=== PATIENT | female | born 1945 | race Caucasian/White ===

== ENCOUNTER 2024-12-22 13:04 | Inpatient (IN) | payer OTHER, SELFPAY ==
[2024-12-22] VITALS (10 sets, daily range): BP systolic 102–172; BP diastolic 47–88; BMI 34.5; BMI 33.6
--- NOTE | 2024-12-22 06:58 | ED.GENMED ---
History of Present Illness
General
Chief Complaint: Weakness
Source: patient
Exam Limitations: none
Time Seen by Provider: 12/22/24 06:52
History of Present Illness
History of Present Illness:
See MDM
Past History
Past History
ED Past Medical History: GERD, Hypercholesterolemia and Psychiatric
ED Past Surgical History: None
Social History
Tobacco: Non-smoker
Alcohol: None
Phy Exam
Physical Exam
Physical Exam:
See MDM
Course
Orders/Labs/Results
Orders:
Orders
12/22/24 06:55
Electrocardiogram (*1) Urgent
Reason for Study: Vertigo / Dizzy
CT Head W/o Iv Contrast Urgent
Comment:
Reason For Exam: Fall, head injury
EKG- Treatment ONCE
12/22/24 06:59
CR Chest - 2 Views Urgent
Comment:
Reason For Exam: Cough and fevers
12/22/24 07:00
COVID-19 Antigen Urgent
Source: Nasal Swab
Influenza A+B Rapid Molecular Urgent
GABO Source: Nasal Swab
Specimen Description:
12/22/24 07:09
Basic Metabolic Panel Urgent
Complete Blood Count/With Diff Urgent
12/22/24 07:33
Urinalysis Reflex To Culture Urgent
Date Specimen was Collected: 12/22/24
Time Specimen was Collected: 07:20
Urine Microscopic Reflex Cult Urgent
Urine Culture Urgent
GABO Source: U
Specimen Description:
Date Specimen was Collected: 12/22/24
Time Specimen was Collected: 07:20
12/22/24 09:00
CefTRIAXone [Rocephin] 1,000 mg IV NOW STA
Abnormal Lab Results
12/22/24 12/22/24
07:09 07:33
WBC 15.0 H 10^3/uL
(4.8-10.8)
MCH 31.2 H pg
(27.0-31.0)
Abs Immat Gran (auto) 0.1 H 10^3/uL
(0-0.05)
Absolute Neuts (auto) 11.8 H 10^3/uL
(1.4-6.5)
Absolute Monos (auto) 1.3 H 10^3/uL
(0.1-0.6)
Neutrophils % 78.9 H %
(42.2-75.2)
Lymphocytes % 10.8 L %
(20.5-51.1)
BUN 21 H mg/dl
(7-17)
Glucose 109 H mg/dl
(70-99)
Ur Occult Blood Reflex 1+ A
(Negative)
Urine Nitrite (Reflex) Positive A
(Negative)
Leukocyte Esterase Rfl 3+ A
(Negative)
Urine RBC 3-6 A /HPF
(0-2)
Urine WBC (Reflex) 30-40 A /HPF
(0-5)
Urine Bacteria (Reflex) Many A
(Negative)
Urine Albumin (Reflex) 2+ A
(Neg - Trace)
12/22/24 07:09
12/22/24 07:09
Vital Signs
Initial and Last Documented VS:
Initial Vital Signs
Temp Pulse Resp BP Pulse Ox
98.8 F 87 18 102/55 96
12/22/24 06:54 12/22/24 06:54 12/22/24 06:54 12/22/24 06:54 12/22/24 06:54
Last Documented Vital Signs
Temp Pulse Resp BP Pulse Ox
98.8 F 87 18 102/55 96
12/22/24 06:54 12/22/24 06:54 12/22/24 06:54 12/22/24 06:54 12/22/24 06:54
MDM/Problems Addressed
Differential Diagnosis Includes:
HPI and MDM Narrative:
79-year-old female presenting for evaluation of generalized weakness. This apparently has been ongoing for weeks. This is associated with intermittent fevers and cough. Patient does acknowledge that the cough is somewhat improved. However, due
to her ongoing weakness, she has had a few falls today. Patient states her legs give out. She did hit her head earlier in the morning. She is not on blood thinners. Given the generalized weakness, will obtain basic blood work and urinalysis.
Will obtain screening EKG. Given the cough and fevers, will obtain viral testing and chest x-ray. Given age and head trauma, will obtain CT head
Physical exam
General: Well appearing and non-toxic
HEENT: protecting airway. Mildly dry mucous membranes
Neck: supple
CV: No evidence of cyanosis. Regular rate and rhythm
Resp: No accessory muscle use. Lungs clear
Abd: Non-distended
Extremities: No deformities
Neuro: alert
Psych: Normal affect
Skin: Intact
Problems Addressed including Acute and Chronic Conditions affecting care:
1. Generalized weakness
Acuity: acute
Prognosis: stable
Details: Will obtain basic blood work
2. Cough and fever
Acuity: acute
Prognosis: stable
Details: Afebrile here. Will obtain chest x-ray and viral testing
3. Head injury
Acuity: acute
Prognosis: stable
Details: Given age and trauma, will obtain CT head
Updates
Patient found to have UTI. CT head negative and chest x-ray clear. Given the several weeks of weakness with intermittent fevers, will treat with Rocephin and admit
Differential Diagnosis (but not limited to): Viral syndrome, pneumonia, dehydration, UTI
Testing considered: Troponin but she denies any active chest pain or shortness of breath
Drug therapy (if applicable): OTC meds, please see d/c instruction regarding Rx drugs
Amount and/or Complexity of Data Reviewed
Clinical info obtained from: Patient
External data reviewed: N/A
Labs I independently reviewed (but not limited to): White blood cell count 15
Radiology: The CT scan was personally and independently reviewed. In addition, official CT report reviewed.
Pulse Ox: not hypoxic
EKG independently reviewed: Sinus rhythm, normal axis, no STEMI
Web Production Designer: Sinus rhythm
Critical Care: N/A
Risk of Complication:
Social Determinants of health: Good social support
Discussed with other providers: Hospitalist
Escalation of Care includes Admit/Obs: Given the UTI with leukocytosis and generalized weakness, will admit
Occasional wrong word or 'sound a like' substitutions may have occurred due to the inherent limitations of voice recognition software. Read the chart carefully and recognize, using context, where substitutions have occurred.
*Critical Care Note
Total Time (30-74mins, 75-104mins- exclusive of procedures): Not Applicable
ED Attending Note
-
Portions of this chart may have been created with voice recognition software.� Occasional wrong word or��sound alike� substitutions may have occurred due to the inherent limitations of voice recognition software.
Discharge Plan
Departure
Patient Disposition: Admit
Date of Disposition: 12/22/24
Time of Disposition: 09:02
Admit to: Med/Surg
Presentation/result/management discussed w/ accepting MD/DO: Hospitalist
Discharge Problem:
Acute UTI, Weakness
Prescriptions:
No Action
atorvastatin 40 mg Tablet
40 mg PO DAILY
Patient Comments:
09/23/2023, patient states that they take this medication either in the morning or in the evening whenever they remember to throughout the day.
cyanocobalamin (vitamin B-12) 1,000 mcg Tablet
1,000 mcg PO DAILY
omeprazole 40 mg Capsule,Delayed Release(Dr/Ec)
40 mg PO DAILY
acetaminophen [Tylenol Extra Strength] 500 mg Tablet
1,000 mg PO BIDPRN PRN (Reason: mild pain)
ascorbic acid (vitamin C) [Vitamin C] 500 mg Tablet
500 mg PO DAILY
meclizine 25 mg Tablet
25 mg PO DAILY PRN (Reason: dizziness)
oxybutynin chloride 5 mg Tablet Extended Release 24hr
5 mg PO DAILY
escitalopram oxalate 20 mg Tablet
20 mg PO DAILY
pregabalin 150 mg Capsule
150 mg PO BID
Patient Comments:
09/23/2023, patient filled this medication on 08/28/2023 for 60 capsules according to PDMP.
cholecalciferol (vitamin D3) 25 mcg (1,000 unit) Tablet
25 mcg PO DAILY
B12
1 cap PO DAILY
atorvastatin [Lipitor] 40 mg Tablet
40 mg PO HS
escitalopram oxalate [Lexapro] 20 mg Tablet
20 mg PO DAILY
pregabalin [Lyrica] 150 mg Capsule
150 mg PO BID
Probiotic
1 cap PO DAILY
Vitamin C
1 tab PO DAILY
Vitamin D3
1 tab PO DAILY
meclizine
25 mg PO TID PRN (Reason: dizziness)
melatonin
10 mg PO HS
omeprazole
40 mg PO DAILY
oxybutynin
5 mg PO DAILY
Rx Instructions:
hold SBP<110
Referrals:
UNKNOWN - PT DOES,NOT KNOW [Family Provider] -
Interventions
Interventions:
*Risk Screen - Suicide Last Done: 12/22/24 06:54
*General Assessment Last Done: 12/22/24 06:54
*Neglect/Abuse Screening Last Done: 12/22/24 06:54
*ED COVID-19 Vaccine History Last Done: 12/22/24 06:54
Discharge Date and Time
Print Language: SLOVAK
[2024-12-22 07:19] LABS: % Basophils 0.5 % (0-2); % Eosinophils 0.3 % (0-6); % Immature Granulocytes 0.5 % (0-0.5); % Lymphocytes 10.8 % (20.5-51.1); % Neutrophils 78.9 % (42.2-75.2); Absolute Basophils 0.1 10^3/uL (0-0.2); Absolute Eosinophils 0.1 10^3/uL (0-0.7); Absolute Immature Granulocytes 0.1 10^3/uL (0-0.05); Absolute Lymphocytes 1.6 10^3/uL (1.2-3.4); Absolute Monocytes 1.3 10^3/uL (0.1-0.6); Absolute Neutrophils 11.8 10^3/uL (1.4-6.5); Hematocrit 41.4 % (37.0-47.0); Hemoglobin 13.8 g/dL (12.0-16.0); Mean Corp Hgb Conc. 33.3 g/dL (33.0-37.0); Mean Corpuscular Hgb 31.2 pg (27.0-31.0); Mean Corpuscular Volume 93.7 fL (81.0-99.0); Mean Platelet Volume 10.4 fL (7.4-10.4); Nucleated Red Blood Cells % 0 %; Platelet Count 203 10^3/uL (130-400); Red Blood Cell Count 4.42 10^6/uL (4.20-5.40); Red Cell Dist. Width 13.9 % (11.5-14.5)
[2024-12-22 07:42] LABS: Blood Urea Nitrogen 21 mg/dl (7-17); Calcium 9.1 mg/dl (8.4-10.2); Carbon Dioxide 26 mmol/L (22-30); Chloride 105 mmol/L (98-107); Estimated Creatinine Clearance 43 ml/min; Glucose 109 mg/dl (70-99); Sodium 138 mmol/L (135-145); eGFR 57.66
[2024-12-22 07:45] LABS: COVID-19 Antigen Negative (Negative)
[2024-12-22 07:49] LABS: Urine Albumin 2+ (Neg - Trace); Urine Bilirubin Negative (Negative); Urine Character Clear (Clear); Urine Color Yellow; Urine Glucose Negative (Negative); Urine Ketone Negative (Negative); Urine Leukocyte 3+ (Negative); Urine Nitrite Positive (Negative); Urine Occult Blood 1+ (Negative); Urine Specific Gravity 1.015 (<1.030); Urine Urobilinogen Negative (Neg - 1+)
[2024-12-22 08:26] LABS: Urine Mucus Few
[2024-12-22 08:27] LABS: Urine Bacteria Many (Negative); Urine White Cell 30-40 /HPF (0-5)
[2024-12-22] MEDS: ROCEPHIN 1000 MG IV (09:29)
--- NOTE | 2024-12-22 11:33 | HPS.HSE ---
Family Physician
-
Family Physician: NOT KNOW UNKNOWN - PT DOES
Chief Complaint
-
Shortness of breath and recent fever
History of Present Illness
79 y/o female with past medical history of COVID-19 infection with viral syndrome and generalized fatigue, dyslipidemia, anxiety and depression, gastroesophageal reflux disease, fibromyalgia (on Lyrica prior to presentation) and urinary tract
infections with overactive bladder who presented with generalized weakness and shortness of breath for about 2 to 3 weeks. Patient said she had a temperature of 102 degrees F 2 weeks ago, no recurrence of fever since then. She does say she is having
progressive shortness of breath, even on little exertion, she reported that her legs are always swollen. She has fallen recently, but stated that has never lost consciousness. She denied any chest pain or abdominal pain. She reported chronic urinary
frequency/urinating a lot due to her chronic bladder issues, but denied any dysuria, suprapubic pain, or flank or back pain. She denied any new skin rash or any new joint issues.
Medical History
Past Medical History
Past Medical History: Reports Other (As per HPI above)
Past Surgical History: Reports Orthopedic (Right TKR, L4-L5 repair left ankle repair)
Social History
Tobacco: Non-smoker
Alcohol: None
Drug: None
Family History
Family History: Not pertinent
Allergies / Home Medications
Allergies reflects when Allergies were last updated in [facility].
Home Medications with original date entered in [facility]
Allergy/Medication List:
Allergies
Allergy/AdvReac Type Severity Reaction Status Date / Time
atorvastatin [From Lipitor] Allergy Unknown Verified 09/23/23 10:26
naproxen [From Naprosyn] Allergy Rash Verified 09/23/23 10:26
oxycodone Allergy Nausea / Verified 09/23/23 10:26
Vomiting
shellfish derived Allergy Hives Verified 09/23/23 10:26
Home Medications
acetaminophen 500 mg tablet (Tylenol Extra Strength) 1,000 mg PO BIDPRN PRN mild pain 09/23/23
atorvastatin 40 mg tablet 40 mg PO HS High Cholesterol 09/23/23
cholecalciferol (vitamin D3) 25 mcg (1,000 unit) tablet 25 mcg PO DAILY Supplement 09/23/23
cyanocobalamin (vitamin B-12) 1,000 mcg tablet 1,000 mcg PO DAILY Supplement 09/23/23
escitalopram oxalate 20 mg tablet 20 mg PO DAILY Depression 09/23/23
meclizine 25 mg tablet 25 mg PO DAILYPRN PRN dizziness 09/23/23
melatonin 10 mg tablet 10 mg PO HS Sleep ##0 09/23/23
omeprazole 40 mg capsule,delayed release 40 mg PO DAILY Gastrointestinal Issue 09/23/23
oxybutynin chloride 5 mg tablet,extended release 24 hr 5 mg PO DAILY Urinary Issue 09/23/23
pregabalin 150 mg capsule 150 mg PO BID Pain 09/23/23
buspirone 5 mg tablet 5 mg PO BID Mental Health/Anxiety 12/22/24
Review of Systems
-
A 12 point ROS was completed and negative except as noted: Yes
Physical Exam
Vital Signs
Vital Signs
Temp Pulse Resp BP Pulse Ox
98.8 F 87 18 102/55 96
12/22/24 06:54 12/22/24 06:54 12/22/24 06:54 12/22/24 06:54 12/22/24 06:54
Physical Exam
General: No Apparent Distress
HEENT: NormoCephalic and Moist mucous membranes
Respiratory: Clear
Cardiac: S1/S2 and Regular Rhythm
GI: Soft, Non Tender and Normal Bowel Sounds
Genito-urinary: No costovertebral tender (on either the left or the right side) and Other (No suprapubic tenderness)
Musculoskeletal: No Cyanosis, Edema, Left Lower Extremity and Edema, Right Lower Extremity
Skin: Warm and Dry
Neuro: Awake, Alert, AO x 3 and Nonfocal/grossly intact
Psych: Calm and Intact Judgment/Insight
Laboratory Results
-
12/22/24 07:09
12/22/24 07:09
Laboratory Results
Total Bilirubin Cancelled 12/22/24 07:09
AST Cancelled 12/22/24 07:09
ALT Cancelled 12/22/24 07:09
Alkaline Phosphatase Cancelled 12/22/24 07:09
Impression/Plan
-
Assessment/Plan
Presentation with generalized weakness for weeks
Presentation with progressive shortness of breath for weeks, even with minimal exertion
Recent Unexplained Fever 102 F - 2 weeks prior to presentation
Falls within 24 hours prior to presentation -- with legs giving out -- associated with head trauma (not on blood thinners)
Concern for UTI
Leukocytosis
-Rocephin given in the ER for UTI but patient reports no UTI symptoms, except for chronic urinary frequency from overactive bladder
-Patient denied any new skin redness or any joint complaints
-Since urinary frequency may have worsened, and UA suggest UTI, continue Rocephin for now
-Follow urine culture
-Neurochecks
-Check CT Chest PE and lower extremity ultrasound for VTE
-Check echo, proBNP, daily weights, I's and O's
-Check CK
-Monitor on Telemetry
History of COVID-19 infection with viral syndrome and generalized fatigue
History of transient hypotension secondary to dehydration
-Monitor vital signs
Dyslipidemia
-Continue home Atorvastatin
Anxiety and depression
-Continue home BuSpar
-Continue home Escitalopram
Gastroesophageal reflux disease
-Continue home Omeprazole or equivalent
Fibromyalgia, on Lyrica prior to presentation.
History of urinary tract infections with overactive bladder
-Continue oxybutynin
-Bladder Scans protocol
DVT Prophylaxis: Lovenox
Code Status: DNR (patient confirmed this with me at the time of admission, and patient demonstrated good decision-making capacity at the time of admission)
[2024-12-22 14:49] LABS: Hematocrit 38.3 % (37.0-47.0); Hemoglobin 12.8 g/dL (12.0-16.0); Mean Corp Hgb Conc. 33.4 g/dL (33.0-37.0); Mean Corpuscular Volume 92.7 fL (81.0-99.0); Mean Platelet Volume 10.3 fL (7.4-10.4); Platelet Count 188 10^3/uL (130-400); Red Blood Cell Count 4.13 10^6/uL (4.20-5.40); White Blood Cell Count 12.1 10^3/uL (4.8-10.8)
--- NOTE | 2024-12-22 14:53 | PTCARENOTE ---
Received patient from ED via stretcher. AAOx3, ambulated with assistance to bed. Assessed and oriented to room. Call carrington in close reach.
[2024-12-22 14:56] LABS: APTT 25.4 Sec (23.4-35.0)
[2024-12-22 14:59] LABS: Blood Urea Nitrogen 22 mg/dl (7-17); Calcium 8.8 mg/dl (8.4-10.2); Carbon Dioxide 25 mmol/L (22-30); Chloride 103 mmol/L (98-107); Estimated Creatinine Clearance 48 ml/min; Glucose 99 mg/dl (70-99); Potassium 4.6 mmol/L (3.5-5.1); Sodium 137 mmol/L (135-145); eGFR > 60.00
[2024-12-22 15:03] LABS: Creatine Phosphokinase < 20 U/L (30-135)
[2024-12-22 15:10] LABS: NT-proBNP 387 pg/ml; Troponin I < 0.012 ng/ml
[2024-12-22] MEDS: LEXAPRO 20 MG PO (15:18)
[2024-12-22] MEDS: VITAMIN B-12 1000 MCG PO (15:18)
[2024-12-22] MEDS: VITAMIN D3 (cholecalciferol) 25 MCG PO (15:18)
[2024-12-22 15:30] LABS: TSH 0.21 uIU/ml (0.47-4.68)
[2024-12-22 15:49] LABS: Vitamin B12 764 pg/ml (239-931)
[2024-12-22] MEDS: HEPARIN 6400 UNITS IV (16:49)
[2024-12-22] MEDS: HEPARIN 25000 UNITS/250 ML IV (16:54)
--- NOTE | 2024-12-22 18:08 | W.PN.UPDATE ---
Update Note
Progress Note Update
I was notified by radiologist that patient has DVT and PE. I ordered Heparin Drip with DVT/PE Protocol. Given the multiple PE, discussed case with IR who said given patient's vital signs stable, and no right heart strain and their review of extent
of PE, there is no benefit to catheter directed therapy in this setting; patient should do well with anticoagulation alone.
Discussed case with pulmonary who recommended bedrest for at least [address] Chest also showed moderate bronchitis in the right lower lobe with proximal segmental endobronchial occlusion, ordered pulmonary toilet with Mucinex, 3% Saline
nebulizer, Incentive Spirometer, Acapella and Duonebs QID for now -- discussed this regimen with pulmonary on-call who is in agreement with this plan, appreciate pulmonary.
[2024-12-22] MEDS: DUONEB 3 ML INH (19:55)
[2024-12-22] MEDS: SODIUM CHLORIDE 3% FOR INHALATION 1 VIAL INH (19:56)
[2024-12-22 20:42] LABS: Troponin I < 0.012 ng/ml
[2024-12-22] MEDS: LIPITOR 40 MG PO (21:49)
[2024-12-22] MEDS: MUCINEX 600 MG PO (21:49)
[2024-12-22] MEDS: LYRICA 150 MG PO (21:49)
[2024-12-22] MEDS: BUSPAR 5 MG PO (21:49)
[2024-12-22] MEDS: MELATONIN 10 MG PO (21:50)
[2024-12-22] MEDS: TYLENOL 1000 MG PO (22:09)
[2024-12-22 23:52] LABS: APTT > 200 Sec (23.4-35.0)
[2024-12-23 02:56] LABS: Troponin I < 0.012 ng/ml
[2024-12-23 03:57] VITALS: BP 126/64
[2024-12-23 06:55] VITALS: BMI 33.6
[2024-12-23] MEDS: DUONEB 3 ML INH ×4 (07:05→19:41)
[2024-12-23] MEDS: SODIUM CHLORIDE 3% FOR INHALATION 1 VIAL INH ×3 (07:05→19:41)
[2024-12-23 07:25] VITALS: BP 158/56
[2024-12-23 08:20] LABS: % Basophils 0.8 % (0-2); % Eosinophils 3.1 % (0-6); % Immature Granulocytes 0.3 % (0-0.5); % Lymphocytes 37.6 % (20.5-51.1); % Monocytes 9.4 % (1.7-9.3); % Neutrophils 48.8 % (42.2-75.2); Absolute Basophils 0.1 10^3/uL (0-0.2); Absolute Eosinophils 0.3 10^3/uL (0-0.7); Absolute Lymphocytes 3.9 10^3/uL (1.2-3.4); Hematocrit 38.8 % (37.0-47.0); Hemoglobin 12.8 g/dL (12.0-16.0); Mean Corpuscular Volume 93.9 fL (81.0-99.0); Mean Platelet Volume 10.6 fL (7.4-10.4); Nucleated Red Blood Cells % 0 %; Platelet Count 174 10^3/uL (130-400); Red Blood Cell Count 4.13 10^6/uL (4.20-5.40); White Blood Cell Count 10.3 10^3/uL (4.8-10.8)
[2024-12-23 08:58] LABS: ALT (SGPT) 11 U/L (0-35); AST (SGOT) 18 U/L (14-36); Albumin 3.2 g/dl (3.5-5.0); Alkaline Phosphatase 105 U/L (38-126); Blood Urea Nitrogen 20 mg/dl (7-17); Calcium 8.8 mg/dl (8.4-10.2); Carbon Dioxide 22 mmol/L (22-30); Chloride 107 mmol/L (98-107); Estimated Creatinine Clearance 54 ml/min; Glucose 118 mg/dl (70-99); Sodium 139 mmol/L (135-145); Total Protein 5.9 g/dl (6.3-8.2); eGFR > 60.00
[2024-12-23 09:03] LABS: APTT 164.7 Sec (23.4-35.0)
[2024-12-23] MEDS: VITAMIN D3 (cholecalciferol) 25 MCG PO (09:05)
[2024-12-23] MEDS: MUCINEX 600 MG PO ×2 (09:05→20:53)
[2024-12-23] MEDS: LYRICA 150 MG PO ×2 (09:05→20:53)
[2024-12-23] MEDS: PROTONIX 40 MG PO (09:05)
[2024-12-23] MEDS: BUSPAR 5 MG PO ×2 (09:05→20:53)
[2024-12-23] MEDS: LEXAPRO 20 MG PO (09:06)
[2024-12-23] MEDS: VITAMIN B-12 1000 MCG PO (09:06)
[2024-12-23] MEDS: DESENEX/MITRAZOL/ZEASORB 1 APPLIC TOPICAL ×2 (09:06→20:53)
--- NOTE | 2024-12-23 09:26 | CON.PUL ---
Consultation
Consultation Request
Date/Time Consultation Requested: 12/23/2024-8 AM
Date/Time Consultation Performed: 12/23/24-8:30 AM
Requesting Provider: Hospitalist
Performing Provider: Dr. Sofia
Reason for Consultation: Shortness of breath
Medical History
-
Chief Complaint: Shortness of breath
History of Present Illness:
79-year-old lifelong non-smoking female with a history of previous COVID infection as well as reported recent influenza, anxiety, depression, reflux, fibromyalgia presented with shortness of breath, progressive dyspnea exertion, chronic cough and
mucus production-noted to have a pulmonary embolism-pulmonary was consulted for shortness of breath/DVT/PE 12/23/2024. Patient feels improved and no shortness of breath at rest but has some dyspnea on exertion. She continues to have some chest
congestion, minimally productive cough though sputum was brown and is now clearing up. She offers no complaints of fevers or chills. She has no chest pain, pleurisy, hemoptysis and denies any abdominal pain, nausea, diarrhea, progressive leg
swelling. She states that her left leg is always more swollen than her right.
Past Medical History
Past Medical History: None (Hyperlipidemia. Anxiety. Depression. GERD. Fibromyalgia. Recurrent urinary tract infections. Overactive bladder. Chronic left lower extremity swelling. Right TKR. L4-L5. Left ankle repair.)
Social History
Tobacco: Non-smoker
Alcohol: None
Drug: None
Living: With Family
Occupational Exposures: No known asbestos exposure
Environmental Exposures: No known tuberculosis exposure
Family History
Family History: Reviewed & Not Pertinent (No family history of clotting)
Allergies / Home Medications
Allergies
Allergy/AdvReac Type Severity Reaction Status Date / Time
naproxen [From Naprosyn] Allergy Rash Verified 09/23/23 10:26
oxycodone Allergy Nausea / Verified 09/23/23 10:26
Vomiting
shellfish derived Allergy Hives Verified 09/23/23 10:26
Home Medications
�Medication �Instructions �Recorded �Confirmed �Last Taken �Type
acetaminophen 500 mg tablet 1,000 mg PO BIDPRN PRN mild pain 09/23/23 12/22/24 12/20/24 History
(Tylenol Extra Strength)
atorvastatin 40 mg tablet 40 mg PO HS High Cholesterol 09/23/23 12/22/24 12/21/24 History
cholecalciferol (vitamin D3) 25 25 mcg PO DAILY Supplement 09/23/23 12/22/24 12/21/24 History
mcg (1,000 unit) tablet
cyanocobalamin (vitamin B-12) 1,000 mcg PO DAILY Supplement 09/23/23 12/22/24 12/21/24 History
1,000 mcg tablet
escitalopram oxalate 20 mg tablet 20 mg PO DAILY Depression 09/23/23 12/22/24 12/21/24 History
meclizine 25 mg tablet 25 mg PO DAILYPRN PRN dizziness 09/23/23 12/22/24 1 Week Ago History
~09/16/23
melatonin 10 mg tablet 10 mg PO HS Sleep ##0 09/23/23 12/22/24 12/21/24 History
omeprazole 40 mg capsule,delayed 40 mg PO DAILY Gastrointestinal 09/23/23 12/22/24 12/21/24 History
release Issue
oxybutynin chloride 5 mg 5 mg PO DAILY Urinary Issue 09/23/23 12/22/24 12/21/24 History
tablet,extended release 24 hr
pregabalin 150 mg capsule 150 mg PO BID Pain 09/23/23 12/22/24 12/21/24 History
buspirone 5 mg tablet 5 mg PO BID Mental Health/Anxiety 12/22/24 12/22/24 12/21/24 History
Review of Systems
-
Unable to Obtain full review of systems at this time due to: Other (Per HPI)
Vitals / Labs / Diagnostic Testing
Vital Signs
Temp Pulse Resp BP Pulse Ox
98.2 F 85 18 158/56 96
12/23/24 07:25 12/23/24 07:25 12/23/24 07:25 12/23/24 07:25 12/23/24 07:25
Lab Data
12/23/24 08:03
12/23/24 08:03
Laboratory Results
12/22/24 12/22/24 12/23/24
14: 23:10 08:03
APTT 25.4 > 200 H* 164.7 H*
Microbiology
12/22/24 07:00 Nasal Swab Influenza Types A & B (MARLY) - Final
Negative for Influenza A & B, NAAT
Negative results must be combined with clinical observations
and patient history.
Nucleic Acid Amplification test (NAAT)performed on the
[employer]OV[employer] platform.
Diagnostic Testing:
Physical Exam
-
Exam:
Well-nourished and well-developed in no apparent distress
HEENT-atraumatic, normocephalic
Neck-supple, no JVD, no bruit
Heart-regular rate and rhythm-no murmurs, rubs or gallops, no increased P2, no RV heave
Chest with mildly diminished breath sounds, rare basilar crackle, no wheezes
Back without tenderness
Abdomen-soft, nontender, nondistended, no hepatosplenomegaly
Extremities-no cyanosis, clubbing, trace bilateral edema , negative Homans' sign
Integument-intact, no rashes, lesions or ecchymosis
Neurology-alert and oriented, nonfocal motor and sensory exam
Assessment
-
79-year-old lifelong non-smoking female with a history of previous COVID infection as well as reported recent influenza, anxiety, depression, reflux, fibromyalgia presented with shortness of breath, progressive dyspnea exertion, chronic cough and
mucus production-noted to have a pulmonary embolism-pulmonary was consulted for shortness of breath/DVT/PE 12/23/2024.
Subacute pulmonary embolism-suspect provoked-sedentary
Historically subacute on top of possibly chronic pulmonary emboli
PESI-78, class II, mild risk
DVT
Bronchitis
Mild leukocytosis
Mild hyperglycemia
Conditions present prior to admission:
Hospitalized 09/23/2023-COVID infection, transient hypotension secondary to dehydration
Hyperlipidemia.
Anxiety.
Depression.
GERD.
Fibromyalgia.
Recurrent urinary tract infections.
Overactive bladder.
Chronic left lower extremity swelling. Right TKR. L4-L5. Left ankle repair.
Plan
Patient will be admitted to monitored bed
Supplemental oxygen as needed
Aspiration precautions
Incentive spirometry
Nebulizers-DuoNebs
Mucolytic's
CT chest personally reviewed-summarized below
Echocardiogram without significant right ventricular strain
Lower extremity ultrasound positive for probable chronic left-sided DVT
Suspect may require lifelong anticoagulation
Full PESI summarized above
Heparin drip or Lovenox 1 mg/kg every 12 hours
Anticoagulation for minimum of 3 to 6 months-suspect may require lifelong at least low-dose anticoagulation with signs and symptoms of chronic venous thromboembolic disease
Benefits and risks of thrombolytics have been reviewed
Patient has no tachycardia and no hypotension-currently risks of aggressive thrombolytic therapy outweigh [id number] notified of options, reasons for conservative standard of care therapy and is in agreement
Bedrest �24 hours-begin to mobilize 12/23/2024
Check cultures
Sputum culture if able
Empiric antibiotics-ceftriaxone
Add atypical coverage-doxycycline
DVT prophylaxis-on full anticoagulation
GI prophylaxis-on pantoprazole
Nutrition
Begin out of bed in the next 12 hours
Outpatient pulmonary [id number] repeat lower extremity ultrasounds/CT chest, PFTs, 6-minute walk test, etc.
Reviewed with nursing and primary team
Diagnostic data:
Chest x-ray 09/23/2023-no focal opacifications to suggest pneumonia, extremely low lung volumes
Chest x-ray 12/22/2024-hypoaeration without consolidations
CT chest 12/22/2024-acute pulmonary emboli right pulmonary artery, right middle lobe, right lower lobe and segmental branches with moderate pulmonary artery hypertension, no CT evidence for right heart strain, mild cardiomegaly, severe mosaic pattern
throughout the lungs and diagnostic possibilities include chronic thromboembolic disease, obstructive small airway disease, moderate bronchitis
Lower extremity ultrasound 12/22/2024-occlusive thrombus on the left below the knee suggesting chronic thrombus, chronic scarring/webbing right common femoral vein, nonocclusive, negative for right lower extremity DVT
Echocardiogram 12/22/2024-EF 55-60%, no valvular disease, mildly enlarged right ventricle and normal right ventricular function
Data Reviewed
-
EKG: Report reviewed by me
Radiology: Image personally visualized and interpreted and Report reviewed by me
CT Scan: Image personally visualized and interpreted and Report reviewed by me
Medical Tests (Nuc Med, Echo etc): Report reviewed by me
Labs: Labs reviewed by me
Old Records: Reviewed
Total Time Spent with Patient (in minutes): 55
[2024-12-23] MEDS: ROCEPHIN 1000 MG IV (10:47)
[2024-12-23] MEDS: STERILE WATER FOR INJECTION 10 ML IV (10:47)
--- NOTE | 2024-12-23 10:53 | W.PN.HOSP.TC ---
Addendum entered and electronically signed by Mikel Goodmna MD 12/23/24 14:12:
I called patient son Jose Meléndez and explained patient's current medical condition and diagnoses, and current management and plan. All questions and concerns were answered to satisfaction.
Original Note:
Today's Communication/Plan
-
Continue Heparin Drip DVT/PE protocol
Bedrest until ~9 pm tonight
See plan
Assessment / Plan
Assessment / Plan
Physical Exam
General: No Apparent Distress
HEENT: Normocephalic and Moist mucous membranes
Respiratory: Clear to Auscultation Bilaterally
Cardiac: S1/S2 and Regular Rate and Rhythm
GI: Soft, Non Tender and Normal Bowel Sounds
Genito-urinary: No costovertebral tender (on either the left or the right side) and Other (No suprapubic tenderness)
Musculoskeletal: No Cyanosis, Edema, Left Lower Extremity and Edema, Right Lower Extremity
Skin: Warm and Dry
Neuro: Awake, Alert, AO x 3 and Nonfocal/grossly intact
Psych: Calm and Intact Judgment/Insight
Assessment/Plan
Acute pulmonary embolism (multiple pulmonary emboli)
Moderate pulmonary arterial hypertension
Severe mosaic attenuation pattern throughout both lungs. Diagnostic possibilities are (1) occlusive vascular disease (chronic thromboembolic pulmonary hypertension) or (2) obstructive small airways disease
Mild cardiomegaly
Mildly enlarged right ventricle with normal RV systolic function on echocardiogram 12/22/24
LLE DVT
Chronic scarring/webbing right common femoral vein and proximal greater saphenous vein, nonocclusive
Presentation with generalized weakness for weeks -- suspected associated with DVT and PE above
Presentation with progressive shortness of breath for weeks, even with minimal exertion
Recent Unexplained Fever 102 F - 2 weeks prior to presentation
Falls within 24 hours prior to presentation -- with legs giving out -- associated with head trauma (not on blood thinners)
Concern for UTI
Leukocytosis
-Rocephin given in the ER for UTI but patient reports no UTI symptoms, except for chronic urinary frequency from overactive bladder
-Patient denied any new skin redness or any joint complaints
-Since urinary frequency may have worsened, and UA suggest UTI, continue Rocephin for now
-Urine culture growing gram negative bacilli
-Neurochecks
-CT Chest showed PE and lower extremity ultrasound showed LLE DVT
-Continue Heparin Drip DVT/PE protocol through tomorrow
-No need for catheter directed thrombolysis or any IR procedure
-Bedrest until ~9 pm on 12/23/24
-proBNP unremarkable
-CK unremarkable
-Monitor on Telemetry
Moderate bronchitis in the right lower lobe with proximal segmental endobronchial occlusion
Moderately decreased bilateral lung volumes
-Continue pulmonary toilet with Mucinex, 3% Saline nebulizer, Incentive Spirometer, Acapella and Duonebs QID for now -- discussed this regimen with pulmonary who is in agreement with this plan
History of COVID-19 infection with viral syndrome and generalized fatigue
History of transient hypotension secondary to dehydration
-Monitor vital signs
Dyslipidemia
-Continue home Atorvastatin
Anxiety and depression
-Continue home BuSpar
-Continue home Escitalopram
Gastroesophageal reflux disease
-Continue home Omeprazole or equivalent
Fibromyalgia, on Lyrica prior to presentation.
History of urinary tract infections with overactive bladder
-Continue oxybutynin
-Bladder Scans protocol
DVT Prophylaxis: Lovenox
Code Status: DNR (patient confirmed this with me at the time of admission, and patient demonstrated good decision-making capacity at the time of admission)
Anticipated Discharge: 24 - 48 hours
Subjective/Interval History
-
Date of Service: December 23, 2024
Patient was seen and examined. She reported the same shortness of breath, denied any chest pain or any other symptoms/complaints.
Objective Data
-
Labs:
Laboratory Results
12/22/24 12/23/24 12/23/24
23:10 08:03 16:15
WBC 10.3
Hgb 12.8
Hct 38.8
Plt Count 174
APTT > 200 H* 164.7 H* Pending
Sodium 139
Potassium 4.0
Chloride 107
Carbon Dioxide 22
BUN 20 H
Creatinine 0.8
Glucose 118 H
Calcium 8.8
Total Bilirubin 1.0
AST 18
ALT 11
Alkaline Phosphatase 105
Vital Signs:
Vital Signs
Temp Pulse Resp BP Pulse Ox
98.2 F 85 18 158/56 96
12/23/24 07:25 12/23/24 07:25 12/23/24 07:25 12/23/24 07:25 12/23/24 07:25
I&O
12/22/24 12/23/24 12/24/24
06:59 06:59 06:59
Intake Total 720 / 720 240 / 240
Output Total 700 / 700
Balance 20 / 20 240 / 240
[2024-12-23 11:24] VITALS: BP 138/58
--- NOTE | 2024-12-23 12:32 | CM ---
Patient seen bedside with daughter.
IA completed.
[facility].
Patient independent prior to admission has walker and cane, patient drives.
patient has not had VN and has not been to skilled rehab.
Patient + for PE and DVT, May need PT/OT evals once stable.
patient was not on home oxygen.
CM will continue to follow for d/c needs.
Son will transport home.
PCP; Dr Duarte
Pharmacy: [facility] in [place]
Plan< watch for home care needs.
[2024-12-23 15:10] VITALS: BP 139/73
[2024-12-23 16:29] LABS: APTT 63.7 Sec (23.4-35.0)
[2024-12-23] MEDS: HEPARIN 6400 UNITS IV (16:50)
[2024-12-23] MEDS: HEPARIN 25000 UNITS/250 ML IV (16:51)
[2024-12-23] MEDS: SODIUM CHLORIDE 3% FOR INHALATION INH (17:16)
--- NOTE | 2024-12-23 17:28 | W.PN.UPDATE ---
Update Note
Progress Note Update
Fever a couple of weeks ago was from Influenza, as per patient's son Jose.
[2024-12-23 19:05] VITALS: BP 138/50
[2024-12-23] MEDS: MELATONIN 10 MG PO (20:54)
[2024-12-23] MEDS: LIPITOR 40 MG PO (20:54)
[2024-12-23] MEDS: VIBRAMYCIN 100 MG PO (20:54)
[2024-12-23] MEDS: TYLENOL 1000 MG PO (20:54)
[2024-12-23 23:54] VITALS: BP 121/55
[2024-12-24 00:28] LABS: APTT > 200 Sec (23.4-35.0)
[2024-12-24 03:48] VITALS: BP 103/53
[2024-12-24 06:00] VITALS: BMI 33.7
[2024-12-24 07:05] VITALS: BP 135/64
[2024-12-24] MEDS: DUONEB 3 ML INH ×4 (07:58→19:15)
[2024-12-24] MEDS: SODIUM CHLORIDE 3% FOR INHALATION 1 VIAL INH ×4 (07:58→19:15)
[2024-12-24] MEDS: VITAMIN D3 (cholecalciferol) 25 MCG PO (08:26)
[2024-12-24] MEDS: LYRICA 150 MG PO ×2 (08:26→20:45)
[2024-12-24] MEDS: VIBRAMYCIN 100 MG PO ×2 (08:26→20:45)
[2024-12-24] MEDS: VITAMIN B-12 1000 MCG PO (08:26)
[2024-12-24] MEDS: BUSPAR 5 MG PO ×2 (08:26→20:44)
[2024-12-24] MEDS: PROTONIX 40 MG PO (08:26)
[2024-12-24] MEDS: MUCINEX 600 MG PO ×2 (08:26→20:45)
[2024-12-24] MEDS: LEXAPRO 20 MG PO (08:26)
[2024-12-24] MEDS: DESENEX/MITRAZOL/ZEASORB 1 APPLIC TOPICAL ×2 (08:27→20:45)
[2024-12-24 08:45] LABS: % Eosinophils 4.9 % (0-6); % Immature Granulocytes 0.4 % (0-0.5); % Lymphocytes 23.4 % (20.5-51.1); % Monocytes 10.7 % (1.7-9.3); % Neutrophils 59.6 % (42.2-75.2); Absolute Basophils 0.1 10^3/uL (0-0.2); Absolute Eosinophils 0.5 10^3/uL (0-0.7); Absolute Lymphocytes 2.1 10^3/uL (1.2-3.4); Absolute Neutrophils 5.4 10^3/uL (1.4-6.5); Hematocrit 33.8 % (37.0-47.0); Hemoglobin 11.3 g/dL (12.0-16.0); Mean Corp Hgb Conc. 33.4 g/dL (33.0-37.0); Mean Corpuscular Volume 92.9 fL (81.0-99.0); Mean Platelet Volume 10.4 fL (7.4-10.4); Nucleated Red Blood Cells % 0 %; Platelet Count 170 10^3/uL (130-400); Red Blood Cell Count 3.64 10^6/uL (4.20-5.40); Red Cell Dist. Width 14.2 % (11.5-14.5); White Blood Cell Count 9.1 10^3/uL (4.8-10.8)
[2024-12-24 08:57] LABS: APTT 63.4 Sec (23.4-35.0)
[2024-12-24 09:12] LABS: ALT (SGPT) 10 U/L (0-35); AST (SGOT) 18 U/L (14-36); Albumin 3.1 g/dl (3.5-5.0); Alkaline Phosphatase 99 U/L (38-126); Blood Urea Nitrogen 17 mg/dl (7-17); Calcium 8.7 mg/dl (8.4-10.2); Carbon Dioxide 23 mmol/L (22-30); Chloride 107 mmol/L (98-107); Estimated Creatinine Clearance 61 ml/min; Glucose 103 mg/dl (70-99); Potassium 4.5 mmol/L (3.5-5.1); Sodium 137 mmol/L (135-145); Total Bilirubin 0.9 mg/dl (0.2-1.3); Total Protein 5.7 g/dl (6.3-8.2); eGFR > 60.00
[2024-12-24] MEDS: HEPARIN 6400 UNITS IV (09:32)
[2024-12-24] MEDS: ROCEPHIN 1000 MG IV (10:14)
[2024-12-24] MEDS: STERILE WATER FOR INJECTION 10 ML IV (10:15)
--- NOTE | 2024-12-24 10:18 | W.PN.HOSP.TC ---
Today's Communication/Plan
-
see A/P
Assessment / Plan
Assessment / Plan
Assessment/Plan:
# Acute pulmonary embolism (multiple pulmonary emboli) with LLE DVT
# Moderate pulmonary arterial hypertension
# acute hypoxic respiratory insufficiency
Placed on 3L NC, wean as tolerated, pt not on home O2
Mildly enlarged right ventricle with normal RV systolic function on echocardiogram 12/22/24
heparin drip -> Eliquis 10 mg BID x 7 days, then 5 mg BID for 3 months (first episode of VTE)
Recc outpt cancer screening with PCP, informed pt
# Sepsis (Leukocytosis and fever) POA 2/2 UTI
# Generalized weakness with Falls within 24 hours prior to presentation
Urine culture grew Klebsiella
Rocephin -> Ancef
Recc to hold [employer] oxybutynin which could have contributed to UTI
Formal PT OT Eval
# Moderate bronchitis in the right lower lobe with proximal segmental endobronchial occlusion
# Moderately decreased bilateral lung volumes
Continue pulmonary toilet with Mucinex, 3% Saline nebulizer, Incentive Spirometer, Acapella and Duonebs QID for now
Cont empiric doxycycline for now
# History of COVID-19 infection with viral syndrome and generalized fatigue
# History of transient hypotension secondary to dehydration
# Dyslipidemia
home Atorvastatin
# Anxiety and depression
Continue home BuSpar
Continue home Escitalopram
# Gastroesophageal reflux disease
Continue home Omeprazole or equivalent
# Fibromyalgia, on Lyrica prior to presentation.
# History of urinary tract infections with overactive bladder
Continue oxybutynin
Bladder Scans protocol
DVT Prophylaxis: Eliquis for VTE
Code Status: DNR
DW RN
Anticipated Discharge: 24 - 48 hours
Subjective/Interval History
-
Date of Service: December 24, 2024
Objective Data
-
Labs:
Laboratory Results
12/23/24 12/24/24 12/24/24
23:29 08:29 15:30
WBC 9.1
Hgb 11.3 L
Hct 33.8 L
Plt Count 170
APTT > 200 H* 63.4 H Pending
Sodium 137
Potassium 4.5
Chloride 107
Carbon Dioxide 23
BUN 17
Creatinine 0.7
Glucose 103 H
Calcium 8.7
Total Bilirubin 0.9
AST 18
ALT 10
Alkaline Phosphatase 99
Vital Signs:
Vital Signs
Temp Pulse Resp BP Pulse Ox
36.8 C 89 18 135/64 97
12/24/24 07:05 12/24/24 08:25 12/24/24 08:25 12/24/24 07:05 12/24/24 08:25
I&O
12/23/24 12/24/24 12/25/24
06:59 06:59 06:59
Intake Total 720 / 720 720 / 720
Output Total 700 / 700 800 / 800
Balance 20 / 20 -80 / -80
Review of Systems
-
All other systems: Reviewed and negative
Physical Exam
-
General: Well Developed, Well Nourished, Comfortable, Respiratory Distress (mild) and Conversant
HEENT: Normocephalic, Atraumatic, Nose Appears Normal, Ears Appear Normal and Oxygen (3L NC)
Respiratory: Clear to Auscultation and Non Labored Respirations; Negative Accessory Resp Muscle Use
Cardiac: Regular Rhythm and S1/S2
GI: Soft, Nontender, Nondistended and Normal Bowel Sounds
Skin: Warm and Dry
Neuro: Awake, Alert, Oriented and AO x 3
Psych: Calm and Intact Judgement/Insight
Data Reviewed
-
CT Scan: Report Reviewed by me
Ultrasound: Report Reviewed by me
Medical Tests (Nuc Med, Echo etc): Report Reviewed by me (echo)
Labs: Labs Reviewed by me
[2024-12-24] MEDS: ELIQUIS 10 MG PO ×2 (10:50→20:45)
[2024-12-24] MEDS: ANCEF 5 IV ×2 (10:50→20:44)
[2024-12-24 11:22] VITALS: BP 135/58
[2024-12-24] MEDS: DUONEB INH (15:26)
[2024-12-24] MEDS: SODIUM CHLORIDE 3% FOR INHALATION INH (15:27)
[2024-12-24 15:49] VITALS: BP 130/62
[2024-12-24] MEDS: TYLENOL 1000 MG PO (16:17)
--- NOTE | 2024-12-24 16:50 | W.PN.PUL3 ---
Today's Communication / Plan
-
Eliquis
Ceftriaxone/Doxy due to RLL bronchitis
Mucolytics
DuoNebs
Up OOB as tolerated
Outpatient hematology evaluation for hypercoagulable workup and discussion of AC duration
If resting SaO2 is <95% on room air then check ambulatory pulse oximetry prior to discharge
Pulmonary service will continue to follow along and outpatient pulmonary follow-up will be arranged
Assessment
-
79-year-old lifelong non-smoking female with a history of previous COVID infection as well as reported recent influenza, anxiety, depression, reflux, fibromyalgia presented with shortness of breath, progressive dyspnea exertion, chronic cough and
mucus production-noted to have a pulmonary embolism-pulmonary was consulted for shortness of breath/DVT/PE 12/23/2024.
Submassive right-sided pulmonary embolism-suspect provoked-sedentary lifestyle
Historically submassive on top of possibly chronic pulmonary emboli
PESI-78, class II, mild risk
Left lower extremity DVT
Bronchitis
Mild leukocytosis now resolved
Conditions present prior to admission:
Hospitalized 09/23/2023-COVID infection, transient hypotension secondary to dehydration
Hyperlipidemia.
Anxiety.
Depression.
GERD.
Fibromyalgia.
Recurrent urinary tract infections.
Overactive bladder.
Chronic left lower extremity swelling. Right TKR. L4-L5. Left ankle repair.
Plan
Maintain SpO2 >90-94% with supplemental oxygen as needed
Aspiration precautions
Incentive spirometry encouraged
Nebulizers-DuoNebs QID --> can decrease to BID
Mucolytics
CT chest personally reviewed-summarized below
Echocardiogram without significant right ventricular strain
Lower extremity ultrasound positive for probable chronic left-sided DVT
Suspect may require lifelong anticoagulation
Full PESI summarized above
Now changed to Eliquis this AM
Anticoagulation for minimum of 3 to 6 months-suspect may require lifelong at least low-dose anticoagulation with signs and symptoms of chronic venous thromboembolic disease
Recommend outpatient hematology evaluation for hypercoagulable workup and discussion of AC duration
Recommend case management consult to assess affordability of Eliquis
Benefits and risks of thrombolytics have been reviewed
Patient has no tachycardia and no hypotension-currently risks of aggressive thrombolytic therapy outweigh [id number] notified of options, reasons for conservative standard of care therapy and is in agreement
Okay to start mobilizing given that it has been >24 hours on anticoagulation
Urine cultures have grown Klebsiella pneumonia
Patient remains on ceftriaxone/doxycycline
Check a sputum culture if patient can produce a decent sample
DVT prophylaxis-now on Eliquis
Continue pantoprazole (home med)
Nutrition
Outpatient pulmonary [id number]-[id number] repeat lower extremity ultrasounds/CT chest, PFTs, 6-minute walk test, etc.
Reviewed with nursing and primary team
Pulmonary service will continue to follow along
Diagnostic data:
Chest x-ray 09/23/2023-no focal opacifications to suggest pneumonia, extremely low lung volumes
Chest x-ray 12/22/2024-hypoaeration without consolidations
CT chest 12/22/2024-acute pulmonary emboli right pulmonary artery, right middle lobe, right lower lobe and segmental branches with moderate pulmonary artery hypertension, no CT evidence for right heart strain, mild cardiomegaly, severe mosaic pattern
throughout the lungs and diagnostic possibilities include chronic thromboembolic disease, obstructive small airway disease, moderate bronchitis
Lower extremity ultrasound 12/22/2024-occlusive thrombus on the left below the knee suggesting chronic thrombus, chronic scarring/webbing right common femoral vein, nonocclusive, negative for right lower extremity DVT
Echocardiogram 12/22/2024-EF 55-60%, no valvular disease, mildly enlarged right ventricle and normal right ventricular function
Total time spent today was 37 minutes for this encounter. Time includes reviewing laboratory test/imaging results, reviewing pertinent medical records, obtaining and reviewing medical history, performing an appropriate exam, ordering medications,
tests and procedures. Time also includes documentation of this encounter, coordinating patient care and communicating with other healthcare professionals. Total time does not include separately billed tests performed on this date of service.
Subjective Data
-
Date of Service:
Date of Service: December 24, 2024
Chief Complaint: Pulmonary Follow Up and VTE Follow Up
Subjective:
Patient seen and evaluated this morning (late note entry). She feels well, denies shortness of breath or chest pain. Currently on room air breathing well, saturating 95%. Denies a cough, LÓPEZ, nausea, fevers or chills.
Review of Systems
General: Other (Negative unless mentioned above)
Objective Data
Data Reviewed
Vital Signs / I&O / Oxygen:
Vital Signs
Temp Pulse Resp BP Pulse Ox
98.2 F 89 18 135/64 97
12/24/24 07:05 12/24/24 08:25 12/24/24 08:25 12/24/24 07:05 12/24/24 08:25
Intake and Output
12/23/24 12/24/24 12/25/24
06:59 06:59 06:59
Intake Total 720 / 720 720 / 720
Output Total 700 / 700 800 / 800
Balance 20 / 20 -80 / -80
SaO2 97
Nasal Cannula flow liters per 2
minute
Physical Exam
General: Respiratory Distress (negative), Comfortable, Chills (negative) and Sweats (negative)
HEENT: Normocephalic, Anicteric and Other (Thick neck)
Cardiovascular: S1-S2, Rub (negative) and Peripheral Edema (negative)
Respiratory: Clear, Wheeze (negative), Crackles (negative), Rhonchi (negative) and Non-Labored Respirations
GI: Soft, Distended (Abdominal obesity), Non Tender and Normal Bowel Sounds
Neurology: AO x 3 and Tremors (negative)
Skin: Warm, Dry, Cyanosis (negative) and Jaundice (negative)
Labs/Micro/Reports
Lab Data
12/24/24 08:29
12/24/24 08:29
Laboratory Results
12/23/24 12/23/24 12/24/24
16:08 23:29 08:29
APTT 63.7 H > 200 H* 63.4 H
Microbiology
12/22/24 07:33 Urine Urine Culture - Final
Klebsiella pneumoniae
12/22/24 07:00 Nasal Swab Influenza Types A & B (MARLY) - Final
Negative for Influenza A & B, NAAT
Negative results must be combined with clinical observations
and patient history.
Nucleic Acid Amplification test (NAAT)performed on the
[employer] platform.
[2024-12-24 19:42] VITALS: BP 135/59
[2024-12-24] MEDS: LIPITOR 40 MG PO (20:44)
[2024-12-24] MEDS: MELATONIN 10 MG PO (20:45)
[2024-12-24 23:46] VITALS: BP 142/55
[2024-12-25 03:14] VITALS: BP 140/67
[2024-12-25] MEDS: BENADRYL 25 MG PO (03:14)
[2024-12-25] MEDS: ANCEF 5 IV ×3 (03:14→21:46)
[2024-12-25 06:00] VITALS: BMI 33.7
[2024-12-25 06:24] LABS: Hematocrit 34.1 % (37.0-47.0); Hemoglobin 11.3 g/dL (12.0-16.0); Mean Corp Hgb Conc. 33.1 g/dL (33.0-37.0); Mean Corpuscular Hgb 31.6 pg (27.0-31.0); Mean Corpuscular Volume 95.3 fL (81.0-99.0); Mean Platelet Volume 10.6 fL (7.4-10.4); Platelet Count 201 10^3/uL (130-400); Red Blood Cell Count 3.58 10^6/uL (4.20-5.40); Red Cell Dist. Width 14.1 % (11.5-14.5)
[2024-12-25 06:43] LABS: Blood Urea Nitrogen 16 mg/dl (7-17); Calcium 8.9 mg/dl (8.4-10.2); Carbon Dioxide 25 mmol/L (22-30); Chloride 106 mmol/L (98-107); Estimated Creatinine Clearance 54 ml/min; Glucose 91 mg/dl (70-99); Potassium 4.7 mmol/L (3.5-5.1); Sodium 139 mmol/L (135-145); eGFR > 60.00
[2024-12-25 07:55] VITALS: BP 115/55
[2024-12-25] MEDS: DUONEB 3 ML INH ×3 (08:01→20:19)
[2024-12-25] MEDS: SODIUM CHLORIDE 3% FOR INHALATION 1 VIAL INH ×3 (08:01→20:19)
[2024-12-25] MEDS: BUSPAR 5 MG PO ×2 (09:26→21:48)
[2024-12-25] MEDS: ELIQUIS 10 MG PO ×2 (09:26→21:49)
[2024-12-25] MEDS: MUCINEX 600 MG PO ×2 (09:26→21:51)
[2024-12-25] MEDS: LEXAPRO 20 MG PO (09:26)
[2024-12-25] MEDS: LYRICA 150 MG PO ×2 (09:27→21:50)
[2024-12-25] MEDS: VITAMIN D3 (cholecalciferol) 25 MCG PO (09:27)
[2024-12-25] MEDS: VITAMIN B-12 1000 MCG PO (09:27)
[2024-12-25] MEDS: PROTONIX 40 MG PO (09:27)
[2024-12-25] MEDS: VIBRAMYCIN 100 MG PO ×2 (09:27→21:51)
[2024-12-25] MEDS: DESENEX/MITRAZOL/ZEASORB 1 APPLIC TOPICAL ×2 (09:28→21:53)
--- NOTE | 2024-12-25 09:29 | W.PN.HOSP.TC ---
Today's Communication/Plan
-
see A/P
Assessment / Plan
Assessment / Plan
Assessment/Plan:
# Acute pulmonary embolism (multiple pulmonary emboli) with LLE DVT
# Moderate pulmonary arterial hypertension
# acute hypoxic respiratory insufficiency, resolved
3L NC weaned back to RA, pt not on home O2
Mildly enlarged right ventricle with normal RV systolic function on echocardiogram 12/22/24
heparin drip -> Eliquis 10 mg BID x 7 days, then 5 mg BID for 3 months (for first episode of VTE)
Recc outpt cancer screening with PCP, informed pt
# Sepsis (Leukocytosis and fever) POA 2/2 UTI
# Generalized weakness with Falls within 24 hours prior to presentation
Urine culture grew Klebsiella
Rocephin -> Ancef
Recc to hold [employer] oxybutynin which could have contributed to UTI
check kidney US for recurrent UTI
PT OT recc SNF
# Moderate bronchitis in the right lower lobe with proximal segmental endobronchial occlusion
# Moderately decreased bilateral lung volumes
Continue pulmonary toilet with Mucinex, 3% Saline nebulizer, Incentive Spirometer, Acapella and Duonebs QID for now
Cont empiric doxycycline for now, would cover for 5 days
# History of COVID-19 infection with viral syndrome and generalized fatigue
# History of transient hypotension secondary to dehydration
# Dyslipidemia
home Atorvastatin
# Anxiety and depression
Continue home BuSpar
Continue home Escitalopram
# Gastroesophageal reflux disease
Continue home Omeprazole or equivalent
# Fibromyalgia, on Lyrica prior to presentation.
# History of urinary tract infections with overactive bladder
Continue oxybutynin
Bladder Scans protocol
DVT Prophylaxis: Eliquis for VTE
Code Status: DNR
DW RN
Anticipated Discharge: 24 - 48 hours
Subjective/Interval History
-
Date of Service: December 25, 2024
Objective Data
-
Labs:
Laboratory Results
12/25/24
05:42
WBC 8.0
Hgb 11.3 L
Hct 34.1 L
Plt Count 201
Sodium 139
Potassium 4.7
Chloride 106
Carbon Dioxide 25
BUN 16
Creatinine 0.8
Glucose 91
Calcium 8.9
Vital Signs:
Vital Signs
Temp Pulse Resp BP Pulse Ox
36.8 C 86 16 115/55 94
12/25/24 07:55 12/25/24 08:07 12/25/24 08:07 12/25/24 07:55 12/25/24 09:23
I&O
12/24/24 12/25/24 12/26/24
06:59 06:59 06:59
Intake Total 720 / 720 900 / 900
Output Total 800 / 800 1350 / 1350
Balance -80 / -80 -450 / -450
Review of Systems
-
All other systems: Reviewed and negative
Physical Exam
-
General: Well Developed, Well Nourished, No Apparent Distress, Comfortable and Conversant
HEENT: Normocephalic, Atraumatic, Nose Appears Normal and Ears Appear Normal; Negative Oxygen
Respiratory: Clear to Auscultation and Non Labored Respirations; Negative Accessory Resp Muscle Use
Cardiac: Regular Rhythm and S1/S2
GI: Soft, Nontender, Nondistended and Normal Bowel Sounds
Skin: Warm and Dry
Neuro: Awake, Alert, Oriented and AO x 3
Psych: Calm and Intact Judgement/Insight
Data Reviewed
-
CT Scan: Report Reviewed by me
Ultrasound: Report Reviewed by me
Medical Tests (Nuc Med, Echo etc): Report Reviewed by me (echo)
Labs: Labs Reviewed by me
[2024-12-25] MEDS: STERILE WATER FOR INJECTION IV (10:03)
[2024-12-25] MEDS: DUONEB INH (11:24)
[2024-12-25] MEDS: SODIUM CHLORIDE 3% FOR INHALATION INH (11:24)
[2024-12-25 11:45] VITALS: BP 111/68
[2024-12-25] MEDS: FLUSH (NSS) 1 FLUSH IV ×2 (12:37→21:47)
[2024-12-25 15:55] VITALS: BP 115/51
--- NOTE | 2024-12-25 16:30 | W.PN.PUL3 ---
Today's Communication / Plan
-
Eliquis
Ancef/Doxy due to RLL bronchitis
Mucolytics
DuoNebs
Up OOB as tolerated
Outpatient hematology evaluation for hypercoagulable workup and discussion of AC duration
If resting SaO2 is <95% on room air then check ambulatory pulse oximetry prior to discharge
Dispo efforts � she is awaiting transfer to skilled rehab which likely will not happen until at least Thursday, 12/26
Pulmonary service will continue to follow along and outpatient pulmonary follow-up will be arranged
Assessment
-
79-year-old lifelong non-smoking female with a history of previous COVID infection as well as reported recent influenza, anxiety, depression, reflux, fibromyalgia presented with shortness of breath, progressive dyspnea exertion, chronic cough and
mucus production-noted to have a pulmonary embolism-pulmonary was consulted for shortness of breath/DVT/PE 12/23/2024.
Impression:
Submassive right-sided pulmonary embolism-suspect provoked-sedentary lifestyle
Historically submassive on top of possibly chronic pulmonary emboli
PESI-78, class II, mild risk
Left lower extremity DVT
Bronchitis
Mild leukocytosis now resolved
Conditions present prior to admission:
Hospitalized 09/23/2023-COVID infection, transient hypotension secondary to dehydration
Hyperlipidemia.
Anxiety.
Depression.
GERD.
Fibromyalgia.
Recurrent urinary tract infections.
Overactive bladder.
Chronic left lower extremity swelling. Right TKR. L4-L5. Left ankle repair.
Plan
Maintain SpO2 >90-94% with supplemental oxygen as needed
Aspiration precautions
Incentive spirometry encouraged
Nebulizers-DuoNebs BID
Mucolytics
CT chest personally reviewed-summarized below
Echocardiogram without significant right ventricular strain
Lower extremity ultrasound positive for probable chronic left-sided DVT
Suspect may require lifelong anticoagulation
Full PESI summarized above
Now changed to Eliquis on AM of 12/24
Anticoagulation for minimum of 3 to 6 months-suspect may require lifelong at least low-dose anticoagulation with signs and symptoms of chronic venous thromboembolic disease
Recommend outpatient hematology evaluation for hypercoagulable workup and discussion of AC duration
Recommend case management consult to assess affordability of Eliquis
Benefits and risks of thrombolytics have been reviewed
Patient has no tachycardia and no hypotension-currently risks of aggressive thrombolytic therapy outweigh [id number] notified of options, reasons for conservative standard of care therapy and is in agreement
Okay to start mobilizing given that it has been >24 hours on anticoagulation
Urine cultures have grown Klebsiella pneumonia
Patient remains on doxycycline and now on ancef (since 12/24) s/p ceftriaxone
Check a sputum culture if patient can produce a decent sample
DVT prophylaxis-now on Eliquis
Continue pantoprazole (home med)
Nutrition
Outpatient pulmonary [id number] repeat lower extremity ultrasounds/CT chest, PFTs, 6-minute walk test, etc.
Reviewed with nursing and primary team
Pulmonary service will continue to follow along
Diagnostic data:
Chest x-ray 09/23/2023-no focal opacifications to suggest pneumonia, extremely low lung volumes
Chest x-ray 12/22/2024-hypoaeration without consolidations
CT chest 12/22/2024-acute pulmonary emboli right pulmonary artery, right middle lobe, right lower lobe and segmental branches with moderate pulmonary artery hypertension, no CT evidence for right heart strain, mild cardiomegaly, severe mosaic pattern
throughout the lungs and diagnostic possibilities include chronic thromboembolic disease, obstructive small airway disease, moderate bronchitis
Lower extremity ultrasound 12/22/2024-occlusive thrombus on the left below the knee suggesting chronic thrombus, chronic scarring/webbing right common femoral vein, nonocclusive, negative for right lower extremity DVT
Echocardiogram 12/22/2024-EF 55-60%, no valvular disease, mildly enlarged right ventricle and normal right ventricular function
Total time spent today was 39 minutes for this encounter. Time includes reviewing laboratory test/imaging results, reviewing pertinent medical records, obtaining and reviewing medical history, performing an appropriate exam, ordering medications,
tests and procedures. Time also includes documentation of this encounter, coordinating patient care and communicating with other healthcare professionals. Total time does not include separately billed tests performed on this date of service.
Subjective Data
-
Date of Service:
Date of Service: December 25, 2024
Chief Complaint: Pulmonary Follow Up and VTE Follow Up
Subjective:
Patient seen and evaluated today at bedside (late note entry). She feels even better today than she did yesterday. Currently on room air breathing comfortably. Saturating 94%. She currently denies chest pain, LÓPEZ, nausea, fevers or chills.
Review of Systems
General: Other (Negative unless mentioned above)
Objective Data
Data Reviewed
Vital Signs / I&O / Oxygen:
Vital Signs
Temp Pulse Resp BP Pulse Ox
98.2 F 86 16 115/55 94
12/25/24 07:55 12/25/24 08:07 12/25/24 08:07 12/25/24 07:55 12/25/24 09:23
Intake and Output
12/24/24 12/25/24 12/26/24
06:59 06:59 06:59
Intake Total 720 / 720 900 / 900
Output Total 800 / 800 1350 / 1350
Balance -80 / -80 -450 / -450
SaO2 94
Nasal Cannula flow liters per 1
minute
Physical Exam
General: Respiratory Distress (negative), Comfortable, Chills (negative) and Sweats (negative)
HEENT: Normocephalic, Anicteric and Other (Thick neck)
Cardiovascular: S1-S2, Rub (negative) and Peripheral Edema (negative)
Respiratory: Clear, Wheeze (negative), Crackles (negative), Rhonchi (negative) and Non-Labored Respirations
GI: Soft, Distended (Abdominal obesity), Non Tender and Normal Bowel Sounds
Neurology: AO x 3 and Tremors (negative)
Skin: Warm, Dry, Cyanosis (negative) and Jaundice (negative)
Labs/Micro/Reports
Lab Data
12/25/24 05:42
12/25/24 05:42
Laboratory Results
12/24/24
15:30
APTT Cancelled
Microbiology
12/22/24 07:33 Urine Urine Culture - Final
Klebsiella pneumoniae
12/22/24 07:00 Nasal Swab Influenza Types A & B (MARLY) - Final
Negative for Influenza A & B, NAAT
Negative results must be combined with clinical observations
and patient history.
Nucleic Acid Amplification test (NAAT)performed on the
[employer] platform.
--- NOTE | 2024-12-25 16:47 | PTCARENOTE ---
Pt AAO x3, METZ; OOB to chair/BSC with assist x1/walker, alea well, c/o 'feeling weak' with activity. VSS. On room air-pulse ox 92%,no c/o SOB. Abd obese, soft, alea :PO; appetite fair. Incont urine- Purewick in place draining mod amts clear valeria
urine. Resting in bed at present, no c/o. Will continue to monitor.
[2024-12-25] MEDS: LIPITOR 40 MG PO (21:51)
[2024-12-25] MEDS: MELATONIN 10 MG PO (21:52)
[2024-12-25 23:42] VITALS: BP 140/55
[2024-12-26] MEDS: ANCEF 5 IV (04:11)
[2024-12-26] MEDS: FLUSH (NSS) 2 FLUSH IV (04:11)
[2024-12-26 06:00] VITALS: BMI 33.7
[2024-12-26 07:20] VITALS: BP 128/54
[2024-12-26] MEDS: DUONEB 3 ML INH ×2 (07:41→19:29)
[2024-12-26] MEDS: SODIUM CHLORIDE 3% FOR INHALATION 1 VIAL INH ×3 (07:42→14:25)
[2024-12-26 09:25] LABS: Hematocrit 36.6 % (37.0-47.0); Hemoglobin 12.2 g/dL (12.0-16.0); Mean Corp Hgb Conc. 33.3 g/dL (33.0-37.0); Mean Corpuscular Volume 93.1 fL (81.0-99.0); Mean Platelet Volume 10.3 fL (7.4-10.4); Platelet Count 247 10^3/uL (130-400); Red Blood Cell Count 3.93 10^6/uL (4.20-5.40); Red Cell Dist. Width 14.1 % (11.5-14.5); White Blood Cell Count 10.3 10^3/uL (4.8-10.8)
[2024-12-26] MEDS: LYRICA 150 MG PO ×2 (09:46→20:05)
[2024-12-26] MEDS: PROTONIX 40 MG PO (09:46)
[2024-12-26] MEDS: BUSPAR 5 MG PO ×2 (09:46→20:05)
[2024-12-26] MEDS: LEXAPRO 20 MG PO (09:46)
[2024-12-26] MEDS: VITAMIN D3 (cholecalciferol) 25 MCG PO (09:46)
[2024-12-26] MEDS: VITAMIN B-12 1000 MCG PO (09:46)
[2024-12-26] MEDS: MUCINEX 600 MG PO ×2 (09:46→20:05)
[2024-12-26] MEDS: VIBRAMYCIN 100 MG PO ×2 (09:47→20:05)
[2024-12-26] MEDS: ELIQUIS 10 MG PO ×2 (09:47→20:05)
[2024-12-26] MEDS: STERILE WATER FOR INJECTION IV (09:47)
[2024-12-26] MEDS: DESENEX/MITRAZOL/ZEASORB 1 APPLIC TOPICAL ×2 (09:56→20:05)
[2024-12-26 09:58] LABS: Blood Urea Nitrogen 17 mg/dl (7-17); Calcium 8.9 mg/dl (8.4-10.2); Carbon Dioxide 21 mmol/L (22-30); Chloride 109 mmol/L (98-107); Estimated Creatinine Clearance 54 ml/min; Glucose 113 mg/dl (70-99); Potassium 4.6 mmol/L (3.5-5.1); Sodium 138 mmol/L (135-145); eGFR > 60.00
--- NOTE | 2024-12-26 10:08 | CM ---
Chart reviewed for d/c planning. Therapy rec skilled rehab at d/c. [place] is a [place] resident at [facility].
CM spoke w/ patient's son, who is agreeable to [facility] and [facility] as secondary choice
CM placed referral in [facility] for review, patient will require an insurance auth prior to d/c
Spoke w/ hospitalist, patient poss ready today but can plan for d/c tomorrow
Plan: SNF; (prefer [facility] or [facility]). Need auth
--- NOTE | 2024-12-26 10:29 | W.PN.HOSP.TC ---
Today's Communication/Plan
-
see A/P
Assessment / Plan
Assessment / Plan
Assessment/Plan:
# Acute pulmonary embolism (multiple pulmonary emboli) with LLE DVT
# Moderate pulmonary arterial hypertension
# acute hypoxic respiratory insufficiency, resolved
3L NC weaned back to RA, pt not on home O2
Mildly enlarged right ventricle with normal RV systolic function on echocardiogram 12/22/24
heparin drip -> Eliquis 10 mg BID x 7 days, then 5 mg BID for 3 months (for first episode of VTE)
Recc outpt cancer screening with PCP, informed pt
# Sepsis (Leukocytosis and fever) POA 2/2 UTI
# Generalized weakness with Falls within 24 hours prior to presentation
Urine culture grew Klebsiella
Rocephin -> Ancef, completed 4 days Abx course
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
kidney US unrevealing, no shadowing calculus or hydronephrosis, bilaterally.
PT OT recc SNF
# Moderate bronchitis in the right lower lobe with proximal segmental endobronchial occlusion
# Moderately decreased bilateral lung volumes
Continue pulmonary toilet with Mucinex, 3% Saline nebulizer, Incentive Spirometer, Acapella and Duonebs QID for now
Cont empiric doxycycline for now, would cover for 5 days
# History of COVID-19 infection with viral syndrome and generalized fatigue
# History of transient hypotension secondary to dehydration
# Dyslipidemia
home Atorvastatin
# Anxiety and depression
Continue home BuSpar
Continue home Escitalopram
# Gastroesophageal reflux disease
Continue home Omeprazole or equivalent
# Fibromyalgia, on Lyrica prior to presentation.
# History of urinary tract infections with overactive bladder
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
Bladder Scans protocol
DVT Prophylaxis: Eliquis for VTE
Code Status: DNR
Dispo: SNF
DW RN
Anticipated Discharge: Within 24 hours
Subjective/Interval History
-
Date of Service: December 26, 2024
Objective Data
-
Labs:
Laboratory Results
12/26/24
09:01
WBC 10.3
Hgb 12.2
Hct 36.6 L
Plt Count 247 D
Sodium 138
Potassium 4.6
Chloride 109 H
Carbon Dioxide 21 L
BUN 17
Creatinine 0.8
Glucose 113 H
Calcium 8.9
Vital Signs:
Vital Signs
Temp Pulse Resp BP Pulse Ox
36.8 C 84 16 128/54 95
12/26/24 07:20 12/26/24 07:45 12/26/24 07:45 12/26/24 07:20 12/26/24 07:45
I&O
12/25/24 12/26/24 12/27/24
06:59 06:59 06:59
Intake Total 900 / 900 960 / 960
Output Total 1350 / 1350 275 / 275
Balance -450 / -450 685 / 685
Review of Systems
-
All other systems: Reviewed and negative
Physical Exam
-
General: Well Developed, Well Nourished, No Apparent Distress, Comfortable and Conversant
HEENT: Normocephalic, Atraumatic, Nose Appears Normal and Ears Appear Normal; Negative Oxygen
Respiratory: Clear to Auscultation and Non Labored Respirations; Negative Accessory Resp Muscle Use
Cardiac: Regular Rhythm and S1/S2
GI: Soft, Nontender, Nondistended and Normal Bowel Sounds
Skin: Warm and Dry
Neuro: Awake, Alert, Oriented and AO x 3
Psych: Calm and Intact Judgement/Insight
Data Reviewed
-
CT Scan: Report Reviewed by me
Ultrasound: Report Reviewed by me
Medical Tests (Nuc Med, Echo etc): Report Reviewed by me (echo)
Labs: Labs Reviewed by me
[2024-12-26 11:53] VITALS: BP 130/69; BP 139/71; PULSE 99; O2SAT 95
--- NOTE | 2024-12-26 12:52 | W.PN.PUL3 ---
Today's Communication / Plan
-
Continue Eliquis
Reviewed limitations over the next 2 weeks
Check ambulatory saturation
Consider outpatient hematology evaluation given chronic clot
Age-appropriate cancer screenings outpatient
Pulmonary follow-up in 6 weeks
We will sign off. Please call with questions
Assessment
-
79-year-old lifelong non-smoking female with a history of previous COVID infection as well as reported recent influenza, anxiety, depression, reflux, fibromyalgia presented with shortness of breath, progressive dyspnea exertion, chronic cough and
mucus production-noted to have a pulmonary embolism-pulmonary was consulted for shortness of breath/DVT/PE 12/23/2024.
Impression:
Submassive right-sided pulmonary embolism-suspect provoked-sedentary lifestyle
Historically submassive on top of possibly chronic pulmonary emboli
PESI-78, class II, mild risk
Left lower extremity DVT
Bronchitis
Mild leukocytosis now resolved
Conditions present prior to admission:
Hospitalized 09/23/2023-COVID infection, transient hypotension secondary to dehydration
Hyperlipidemia.
Anxiety.
Depression.
GERD.
Fibromyalgia.
Recurrent urinary tract infections.
Overactive bladder.
Chronic left lower extremity swelling. Right TKR. L4-L5. Left ankle repair.
Plan/recommendations
At this time, patient is without pulmonary complaints
She feels breathing has improved
Denies lightheadedness, dizziness, palpitations, chest pain
Currently on room air, comfortable
Moving forward
Continue with anticoagulation, currently on apixaban 10 mg twice a day
Reviewed at length pathophysiology of thromboembolic disease in layman's terms
CT chest personally reviewed-summarized below
Echocardiogram without significant right ventricular strain
Lower extremity ultrasound positive for probable chronic left-sided DVT
Would consider outpatient hematology evaluation, given chronic clot
Reviewed limitations as outpatient
Ambulation, simple activities encouraged
Avoid heavy lifting, frequent bending, bearing down for 2 weeks
Reassess for home oxygen, ambulate
Urine cultures have grown Klebsiella pneumonia
Patient remains on doxycycline and now on ancef (since 12/24) s/p ceftriaxone
Defer to primary service
Age-appropriate cancer screening
May require follow-up CT chest in 3 to 6 months
DVT prophylaxis-now on Eliquis
Continue pantoprazole (home med)
Nutrition
Outpatient pulmonary rcodlu-[id number]-stfvxboy repeat lower extremity ultrasounds/CT chest, PFTs, 6-minute walk test, etc.
Disposition efforts
We will sign off. Please call with questions
Diagnostic data:
Chest x-ray 09/23/2023-no focal opacifications to suggest pneumonia, extremely low lung volumes
Chest x-ray 12/22/2024-hypoaeration without consolidations
CT chest 12/22/2024-acute pulmonary emboli right pulmonary artery, right middle lobe, right lower lobe and segmental branches with moderate pulmonary artery hypertension, no CT evidence for right heart strain, mild cardiomegaly, severe mosaic pattern
throughout the lungs and diagnostic possibilities include chronic thromboembolic disease, obstructive small airway disease, moderate bronchitis
Lower extremity ultrasound 12/22/2024-occlusive thrombus on the left below the knee suggesting chronic thrombus, chronic scarring/webbing right common femoral vein, nonocclusive, negative for right lower extremity DVT
Echocardiogram 12/22/2024-EF 55-60%, no valvular disease, mildly enlarged right ventricle and normal right ventricular function
Total time spent today was 39 minutes for this encounter. Time includes reviewing laboratory test/imaging results, reviewing pertinent medical records, obtaining and reviewing medical history, performing an appropriate exam, ordering medications,
tests and procedures. Time also includes documentation of this encounter, coordinating patient care and communicating with other healthcare professionals. Total time does not include separately billed tests performed on this date of service.
Subjective Data
-
Date of Service:
Date of Service: December 26, 2024
Chief Complaint: Pulmonary Follow Up and VTE Follow Up
Subjective:
Patient is feeling improved. She feels her breathing is improved, denies chest pain, pleurisy, lightheadedness, cough. Sitting in chair on room air
Objective Data
Data Reviewed
Vital Signs / I&O / Oxygen:
Vital Signs
Temp Pulse Resp BP Pulse Ox
98.2 F 84 16 128/54 95
12/26/24 07:20 12/26/24 07:45 12/26/24 07:45 12/26/24 07:20 12/26/24 07:45
Intake and Output
12/25/24 12/26/24 12/27/24
06:59 06:59 06:59
Intake Total 900 / 900 960 / 960
Output Total 1350 / 1350 275 / 275
Balance -450 / -450 685 / 685
SaO2 95
Nasal Cannula flow liters per 1
minute
Physical Exam
General: Comfortable
HEENT: Normocephalic, Anicteric and Other (Thick neck)
Cardiovascular: S1-S2, Regular Rhythm, Murmur (n), Rub (negative), Peripheral Edema (negative) and Calf Tenderness (n)
Respiratory: Clear, Wheeze (negative), Crackles (negative), Rhonchi (negative), Non-Labored Respirations and Stridor (n)
GI: Soft, Non Distended (Obese), Non Tender and Normal Bowel Sounds
Neurology: Awake, Alert and No Motor Deficits (Moves all extremities)
Skin: Warm, Dry, Cyanosis (negative) and Jaundice (negative)
Labs/Micro/Reports
Lab Data
12/26/24 09:01
12/26/24 09:01
Microbiology
12/22/24 07:33 Urine Urine Culture - Final
Klebsiella pneumoniae
[2024-12-26] MEDS: TYLENOL 1000 MG PO ×2 (15:05→22:45)
[2024-12-26 15:38] VITALS: BP 115/72
[2024-12-26] MEDS: MELATONIN 10 MG PO (22:43)
[2024-12-26] MEDS: LIPITOR 40 MG PO (22:43)
[2024-12-26 23:47] VITALS: BP 126/56
[2024-12-27 06:00] VITALS: BMI 33.6
[2024-12-27] MEDS: DUONEB 3 ML INH (07:36)
[2024-12-27 07:51] VITALS: BP 122/50
[2024-12-27] MEDS: LEXAPRO 20 MG PO (08:33)
[2024-12-27] MEDS: ELIQUIS 10 MG PO (08:33)
[2024-12-27] MEDS: VITAMIN D3 (cholecalciferol) 25 MCG PO (08:33)
[2024-12-27] MEDS: BUSPAR 5 MG PO (08:33)
[2024-12-27] MEDS: VITAMIN B-12 1000 MCG PO (08:33)
[2024-12-27] MEDS: DESENEX/MITRAZOL/ZEASORB 1 APPLIC TOPICAL (08:33)
[2024-12-27] MEDS: VIBRAMYCIN 100 MG PO (08:34)
[2024-12-27] MEDS: MUCINEX 600 MG PO (08:34)
[2024-12-27] MEDS: PROTONIX 40 MG PO (08:34)
[2024-12-27] MEDS: LYRICA 150 MG PO (08:34)
[2024-12-27] MEDS: STERILE WATER FOR INJECTION IV (09:51)
[2024-12-27] MEDS: TYLENOL 1000 MG PO ×2 (09:51→16:31)
--- NOTE | 2024-12-27 10:22 | W.PN.HOSP.TC ---
Addendum entered and electronically signed by Erika Morton MD 12/28/24 14:37:
# UTI without sepsis POA
Addendum entered and electronically signed by Erika Morton MD 12/27/24 15:01:
total DC time 38 min
Original Note:
Today's Communication/Plan
-
see A/P
Assessment / Plan
Assessment / Plan
Assessment/Plan:
# Acute pulmonary embolism (multiple pulmonary emboli) with LLE DVT
# Moderate pulmonary arterial hypertension
# acute hypoxic respiratory insufficiency, resolved
3L NC weaned back to RA, pt not on home O2
Mildly enlarged right ventricle with normal RV systolic function on echocardiogram 12/22/24
heparin drip -> Eliquis 10 mg BID x 7 days, then 5 mg BID for 3 months (for first episode of VTE)
Recc outpt cancer screening with PCP, informed pt
# Sepsis (Leukocytosis and fever) POA 2/2 UTI
# Generalized weakness with Falls within 24 hours prior to presentation
Urine culture grew Klebsiella
Rocephin -> Ancef, completed 4 days Abx course
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
kidney US unrevealing, no shadowing calculus or hydronephrosis, bilaterally.
PT OT recc SNF
# Moderate bronchitis in the right lower lobe with proximal segmental endobronchial occlusion
# Moderately decreased bilateral lung volumes
Continue pulmonary toilet with Mucinex, 3% Saline nebulizer, Incentive Spirometer, Acapella and Duonebs QID for now
Cont empiric doxycycline for now, s/p 5 days coverage
# History of COVID-19 infection with viral syndrome and generalized fatigue
# History of transient hypotension secondary to dehydration
# Dyslipidemia
home Atorvastatin
# Anxiety and depression
Continue home BuSpar
Continue home Escitalopram
# Gastroesophageal reflux disease
Continue home Omeprazole or equivalent
# Fibromyalgia, on Lyrica prior to presentation.
# History of urinary tract infections with overactive bladder
recc to hold [employer]STRUCTION oxybutynin which could have contributed to UTI
Bladder Scans protocol
DVT Prophylaxis: Eliquis for VTE
Code Status: DNR
Dispo: SNF
DW CM
Anticipated Discharge: Today
Subjective/Interval History
-
Date of Service: December 27, 2024
Objective Data
-
Vital Signs:
Vital Signs
Temp Pulse Resp BP Pulse Ox
36.9 C 79 18 122/50 93
12/27/24 07:51 12/27/24 07:51 12/27/24 07:51 12/27/24 07:51 12/27/24 08:30
I&O
12/26/24 12/27/24 12/28/24
06:59 06:59 06:59
Intake Total 960 / 960 720 / 720
Output Total 275 / 275
Balance 685 / 685 720 / 720
Review of Systems
-
All other systems: Reviewed and negative
Physical Exam
-
General: Well Developed, Well Nourished, No Apparent Distress, Comfortable and Conversant
HEENT: Normocephalic, Atraumatic, Nose Appears Normal and Ears Appear Normal; Negative Oxygen
Respiratory: Clear to Auscultation and Non Labored Respirations; Negative Accessory Resp Muscle Use
Cardiac: Regular Rhythm and S1/S2
GI: Soft, Nontender, Nondistended and Normal Bowel Sounds
Skin: Warm and Dry
Neuro: Awake, Alert, Oriented and AO x 3
Psych: Calm and Intact Judgement/Insight
Data Reviewed
-
CT Scan: Report Reviewed by me
Ultrasound: Report Reviewed by me
Medical Tests (Nuc Med, Echo etc): Report Reviewed by me (echo)
Labs: Labs Reviewed by me
[2024-12-27] MEDS: LIDOCAINE 4% PATCH 1 PATCH TOPICAL (10:55)
--- NOTE | 2024-12-27 10:56 | CM ---
Addendum entered by Ashley Mejia 12/27/24 14:43:
Patient scheduled for 5:00 p.m. WC Van
Addendum entered by Ashley Mejia 12/27/24 13:43:
Auth submitted through [employer] approved 12/27-01/02, auth#[id number], [facility] at [facility] updated. Phone call to son, will provide payment for WC Van, phone number provided.
[facility]
Report: [phone]

Original Note:
CM reviewed chart, reviewed with Hospitalist, clear for discharge today. CM spoke with son, informed [facility] able to accept. Son will discuss with patient/sister if patient will need transport via wheelchair or family to transport. Patient will
need OT notes for insurance auth. Patient seen bedside, agreeable to [facility]. IMM reviewed, signed, placed in chart, patient provided with copy. CM will continue to follow for all discharge planning needs.
Plan; [facility] SNF, will submit for auth, will discuss with family transport vs wheelchair van
[2024-12-27 12:59] VITALS: BP 121/58; PULSE 72; O2SAT 93
--- NOTE | 2024-12-27 13:06 | W.DCSUMMARY ---
Discharge Summary
Discharge Data
Date of Admission: 12/22/24
Date of Discharge: 12/27/24
-
Pending Results: No
Hospital Course
Principal Diagnosis:
Acute pulmonary embolism (multiple pulmonary emboli) with left lower extremity (LLE) deep vein thrombosis (DVT), associated with moderate pulmonary arterial hypertension
Acute hypoxic respiratory insufficiency, resolved
Urinary tract infection (UTI) with Klebsiella
Moderate bronchitis in the right lower lobe
Chronic Diagnoses:�
Dyslipidemia on Atorvastatin
Anxiety and depression, on BuSpar and escitalopram
Gastroesophageal reflux disease
Fibromyalgia, on Lyrica
History of urinary tract infections with overactive bladder. 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
Consultations:�
Pulmonary
Procedures:�
None
Clinical course:�
This is a 79-year-old female, with past medical history as stated above, who presented with generalized weakness and progressive shortness of breath.
Problem 1:
Acute pulmonary embolism (multiple pulmonary emboli) with LLE DVT, associated with moderate pulmonary arterial hypertension.
This was also associated with acute hypoxic respiratory insufficiency which resolved.
She was placed on 3 L nasal cannula on admission and this was weaned back to room air.
She was started with heparin drip for her venous thromboembolism, and this was transitioned to Eliquis 10 mg twice daily for 7 days, to follow by 5 mg twice daily for 3 months.
She has been informed to follow-up with the PCP for cancer screening outpatient.
Problem 2:
Urinary tract infection with Klebsiella.
This likely contributed to her generalized weakness and fall prior to admission.
She received Rocephin initially, which was later changed to Ancef.
She completed 4 days of antibiotic while in the hospital.
She has been recommended to hold her prior to admission oxybutynin, which she takes for overactive bladder.
It is possible that oxybutynin may have contributed to UTI.
Of note, her kidney ultrasound was unrevealing, showed no calculus or hydronephrosis bilaterally.
She was discharged to SNF for PT OT recommendation.
Problem 3:
Moderate bronchitis in the right lower lobe.
She received empiric doxycycline for 5 days while in the hospital.
As for the rest of her medical problems, they were stable during her hospital stay.
Discharge Plan
-
Patient Disposition: Custodial/SNF
Discharge Diagnosis/Procedures: Acute pulmonary embolism (multiple pulmonary emboli) with Left leg DVT;
Acute hypoxic respiratory insufficiency (resolved);
Sepsis (Leukocytosis and fever) due to UTI (completed treatment during hospital stay);
Generalized weakness with Falls
Condition: Fair
Diet: As tolerated
Activity: As tolerated
Driving Restrictions: As prior to admission
Activity Restrictions/Additional Instructions:
Recc outpatient cancer screening with PCP.
Referrals:
Chris Sofia MD [Active] -
(Dr. Sofia or nurse practitioner in 6 weeks
Eventual PFTs, radiographic follow-up in 3 mo)
UNKNOWN - PT DOES,NOT KNOW [Family Provider] - in less than 1 week
Additional Discharge Medication Instructions: Take Eliquis 10 mg twice daily x 7 days, then 5 mg twice daily for 3 months
Recc to hold oxybutynin which could have contributed to UTI
Prescriptions:
New
Eliquis 5 mg Tablet
10 mg PO BID 4 Days Qty: 16 0RF
Rx Instructions:
10 mg BID x 7 days, then 5 mg BID for 3 months
Eliquis 5 mg tablet
5 mg PO BID 90 Days Qty: 180 0RF
Rx Instructions:
10 mg BID x 7 days, then 5 mg BID for 3 months
Continued
atorvastatin 40 mg Tablet
40 mg PO HS
cyanocobalamin (vitamin B-12) 1,000 mcg Tablet
1,000 mcg PO DAILY
omeprazole 40 mg Capsule,Delayed Release(Dr/Ec)
40 mg PO DAILY
acetaminophen [Tylenol Extra Strength] 500 mg Tablet
1,000 mg PO BIDPRN PRN (Reason: mild pain)
meclizine 25 mg Tablet
25 mg PO DAILYPRN PRN (Reason: dizziness)
escitalopram oxalate 20 mg Tablet
20 mg PO DAILY
pregabalin 150 mg Capsule
150 mg PO BID
cholecalciferol (vitamin D3) 25 mcg (1,000 unit) Tablet
25 mcg PO DAILY
melatonin 10 mg Tablet
10 mg PO HS Qty: 0
buspirone 5 mg Tablet
5 mg PO BID
Discontinued
oxybutynin chloride 5 mg Tablet Extended Release 24hr
5 mg PO DAILY
Discharge Orders:
Discharge Patient (As Directed); Ordered 12/27/24
Ordered By: Erika Morton
Discharge Date and Time
Print Language: TONGAN
[2024-12-27 13:07] VITALS: BP 121/58; PULSE 71; O2SAT 93
[2024-12-27 16:09] VITALS: BP 150/55
--- NOTE | 2024-12-27 16:27 | PTCARENOTE ---
Pt AAO x3, METZ; OOB to chair;ambulates to BR with walker/minimal assistance; alea well but pt c/o Lt lower back pain and 'feels like my leg is going to give out' with OOB activity. Fall prec maintained. VSS. On room air- pulse ox 95%, no SOB
noted. Abd obese, soft, alea PO well. Voids in BR without difficulty. resting in bed at present; awaiting transfer to [facility].
--- NOTE | 2024-12-28 14:12 | PN.CDI ---
CDI
- -
CDI:
Physician Documentation Request
Admit Date: 12/22/24 13:04
Dear Doctor Selene,
Please review the following and provide your response in the progress notes.
Clinical Indicators:
H+P, 12/22
#Presentation with generalized weakness for weeks
#Presentation with progressive shortness of breath for weeks, even with minimal exertion
#Recent Unexplained Fever 102 F - 2 weeks prior to presentation
#Concern for UTI
#Leukocytosis
#Rocephin given in the ER for UTI but patient reports no UTI symptoms,
#...except for chronic urinary frequency from overactive bladder
Discharge Summary, 12/27
#Discharge Diagnosis/Procedures:
#...Acute pulmonary embolism (multiple pulmonary emboli) with Left leg DVT;
#...Acute hypoxic respiratory insufficiency (resolved);
#...Sepsis (Leukocytosis and fever) due to UTI (completed treatment during hospital stay);
Selected Entries
12/22/24
06:54 12/22/24
14:50 12/22/24
19:55
Temp 98.8 F 98.5 F 99.4 F
NO DOCUMENTED FEVER(ELEVATED TEMPS) DURING THIS ADMISSION
Recognized standard criteria for this condition and other associated definitions:
�Sepsis
-Systemic manifestations of infection, with 2 or more SIRS criteria which include:
-Fever > 100.4��F or hypothermia < 96.8��F
-Leukocytosis WBC > 12,000 or leukopenia, WBC < 4,000, or > 10% bands
-Tachycardia- > 90 beats/minute
-Tachypnea- RR > 20 breaths/minute or PaCO2 < 32mmHg
Source: Merck Manual 2013
-Documentation should include the known or suspected organism, and the underlying infection, such as UTI or pneumonia
Based on the above information and the recognized standard SIRS criteria, please clarify if sepsis is still an accurate diagnosis, and reflective of the patient�s condition, to ensure quality of the medical record.
Please clarify in the Progress Notes:
Sepsis is/was present and is a clinical diagnosis based on (please include this additional support in the medical record)
After study sepsis has been ruled out
Localized Infection Only, Without Systemic Illness
- indicate the site/source, such as UTI, Bronchitis, pneumonia etc.
Other(please specify)
Use of terms such as suspected, likely, concern for, or probable (associated with a specific diagnosis that is being evaluated, monitored, or treated as if it exists) are acceptable and can be coded in the inpatient setting, when documented at the
time of discharge.
Thank you,
Karina Sutton RN BSN CCDS
CDI Specialist
please contact via tiger text
Please use your independent medical judgment in providing your response.
== END 2024-12-27 16:52 | DRG 689 ==
LOC: 4 EAST ACU 13:04
PROVIDERS: Internal Medicine Critical Care Medicine; ADMITTING PHYSICIAN Hospitalist; ATTENDING PHYSICIAN Internal Medicine; EMERGENCY PHYSICIAN Student in an Organized Health Care Education/Training Program; OTHER PHYSICIAN Internal Medicine Critical Care Medicine
DX: N39.0 Urinary tract infection, site not specified (principal); I26.99 Other pulmonary embolism without acute cor pulmonale; Z11.52 Encounter for screening for COVID-19; F32.A Depression, unspecified; F41.9 Anxiety disorder, unspecified; Z79.899 Other long term (current) drug therapy; K21.9 Gastro-esophageal reflux disease without esophagitis; M79.7 Fibromyalgia; Z66 Do not resuscitate; I27.21 Secondary pulmonary arterial hypertension; J40 Bronchitis, not specified as acute or chronic; R09.02 Hypoxemia; R06.89 Other abnormalities of breathing; E78.00 Pure hypercholesterolemia, unspecified; Z87.440 Personal history of urinary (tract) infections; Z86.16 Personal history of COVID-19; B96.1 Klebsiella pneumoniae [K. pneumoniae] as the cause of diseases classified elsewhere
CPT/HCPCS: 70450; 71046; 71275; 76775; 80048; 80053; 81003; 81015; 82550; 82607; 83735; 83880; 84443; 84484; 85025; 85027; 85730; 87077; 87086; 87186; 87502; 87811; 93005; 93306; 93970; 94640; 96374; 97116; 97162; 97166; 97530; 99285; Q9967

== ENCOUNTER → 2024-12-30 10:33 | Outpatient (REF) | payer OTHER, SELFPAY ==
[2024-12-30 11:13] LABS: % Eosinophils 7.2 % (0-6); % Immature Granulocytes 0.7 % (0-0.5); % Lymphocytes 31.8 % (20.5-51.1); % Monocytes 9.8 % (1.7-9.3); % Neutrophils 49.5 % (42.2-75.2); Absolute Basophils 0.1 10^3/uL (0-0.2); Absolute Eosinophils 0.6 10^3/uL (0-0.7); Absolute Immature Granulocytes 0.1 10^3/uL (0-0.05); Absolute Lymphocytes 2.4 10^3/uL (1.2-3.4); Absolute Monocytes 0.8 10^3/uL (0.1-0.6); Absolute Neutrophils 3.8 10^3/uL (1.4-6.5); Hematocrit 34.1 % (37.0-47.0); Hemoglobin 11.3 g/dL (12.0-16.0); Mean Corp Hgb Conc. 33.1 g/dL (33.0-37.0); Mean Corpuscular Hgb 31.5 pg (27.0-31.0); Mean Platelet Volume 10.7 fL (7.4-10.4); Nucleated Red Blood Cells % 0 %; Platelet Count 285 10^3/uL (130-400); Red Blood Cell Count 3.59 10^6/uL (4.20-5.40); Red Cell Dist. Width 13.7 % (11.5-14.5); White Blood Cell Count 7.7 10^3/uL (4.8-10.8)
[2024-12-30 12:18] LABS: Blood Urea Nitrogen 20 mg/dl (7-17); Calcium 8.6 mg/dl (8.4-10.2); Carbon Dioxide 25 mmol/L (22-30); Chloride 105 mmol/L (98-107); Glucose 85 mg/dl (70-99); Potassium 4.6 mmol/L (3.5-5.1); Sodium 136 mmol/L (135-145); eGFR > 60.00
== END ==
LOC: OLABP 10:33
PROVIDERS: ATTENDING PHYSICIAN Family Medicine
DX: I26.99 Other pulmonary embolism without acute cor pulmonale (principal); I27.20 Pulmonary hypertension, unspecified; I82.502 Chronic embolism and thrombosis of unspecified deep veins of left lower extremity; M79.7 Fibromyalgia; A41.9 Sepsis, unspecified organism; N39.0 Urinary tract infection, site not specified; I95.1 Orthostatic hypotension
CPT/HCPCS: 36415; 80048; 85025

== ENCOUNTER → 2025-03-14 14:24 | Outpatient (REF) | payer OTHER, SELFPAY | LOC: RAD 14:24 | PROVIDERS: ATTENDING PHYSICIAN Registered Nurse; FAMILY PHYSICIAN Family Medicine | DX: I26.99 Other pulmonary embolism without acute cor pulmonale (principal); I82.442 Acute embolism and thrombosis of left tibial vein | CPT/HCPCS: 93971 ==

== ENCOUNTER → 2025-03-15 14:17 | Outpatient (REF) | payer OTHER, SELFPAY | LOC: HWWDC 14:17 | PROVIDERS: ATTENDING PHYSICIAN Family Medicine | DX: Z78.0 Asymptomatic menopausal state (principal); Z12.31 Encounter for screening mammogram for malignant neoplasm of breast | CPT/HCPCS: 77063; 77067; 77080 ==

== ENCOUNTER → 2025-05-01 11:17 | Outpatient (REF) | payer OTHER, SELFPAY | LOC: RAD 11:17 | PROVIDERS: ATTENDING PHYSICIAN Nurse Practitioner Adult Health; FAMILY PHYSICIAN Family Medicine | DX: I26.09 Other pulmonary embolism with acute cor pulmonale (principal) | CPT/HCPCS: 71275; Q9967 ==

== ENCOUNTER → 2025-09-19 13:21 | Outpatient (REF) | payer OTHER, SELFPAY | LOC: RAD 13:21 | PROVIDERS: ATTENDING PHYSICIAN Urology; FAMILY PHYSICIAN Family Medicine | DX: N32.81 Overactive bladder (principal); N95.2 Postmenopausal atrophic vaginitis | CPT/HCPCS: 76770; 76856 ==